=== PATIENT | male | born 1950 | race Caucasian/White ===

== ENCOUNTER 2017-05-23 13:41 | Emergency (ER) | payer OTHER ==
[~2017-05-23] VITALS: Ht 180.3 cm; Wt 129.4 kg
[2017-05-23 13:48] VITALS: Ht 180.3 cm; Wt 129.4 kg
[2017-05-23] MEDS ORDERED: XYLOCAINE 1%/SOD BICARB 20 ML VIAL INFIL STA (14:01)
[2017-05-23] MEDS ORDERED: EZET10TA41 PO (14:13)
[2017-05-23] MEDS ORDERED: ASPI81TA28 PO (14:13)
[2017-05-23] MEDS ORDERED: MULT-220 PO (14:13)
[2017-05-23] MEDS ORDERED: DIPHTHERIA/TETANUS/PERTUSSIS 0.5 ML SYR/VIAL IM. ONE (14:15)
--- NOTE | 2017-05-23 14:33 | EMERGENCY ROOM VISIT NOTE ---
ED Visit Note First contact with patient: 13:52 CHIEF COMPLAINT: Right middle finger laceration HISTORY OF PRESENT ILLNESS: This left-hand dominant 66-year-old male patient presents to the emergency department approximately 1 hour after cutting the right middle finger on a piece of glass. Patient states he was cleaning out garbage which had blown out of the can last night, and states he sliced his right middle finger on a glass container which had broken. The bleeding has not stopped. Denies weakness or numbness of the finger. The patient has full range of motion of the fingers. The patient rates the pain as throbbing and 1/10. The patient denies any other injuries. The patient's tetanus shot is not up to date. The patient denies any foreign body. REVIEW OF SYSTEMS: A 6 system review of systems was completed with positives and pertinent negatives listed in the HPI. ALLERGIES: CT contrast dye MEDICATIONS: Vytorin PMH: Harris's palsy, hyperlipidemia SOCIAL HISTORY: The patient lives locally with family. He recently moved to the area. He denies drug, alcohol, tobacco use. PHYSICAL EXAM: Vital Signs: Reviewed Nurse's notes, vital signs stable. GENERAL : This is a 66-year-old white male, in no acute distress, well developed, well nourished. SKIN: There is a 3 cm long flap type laceration on the dorsal aspect of the right middle finger, overlying the PIP joint. The edges gape apart with traction. There is no foreign material in the wound and it looks clean. There is mild active bleeding. No deep structures such as tendons, bones , or significant blood vessels are seen in the base of the wound. Extension and flexion of the finger is full and strong. Full range of motion of the wrist and other fingers. Capillary refill less than 2 seconds. Normal sensation to light and sharp touch. EMERGENCY DEPARTMENT COURSE: I examined the patient. Verbal consent was obtained to perform the procedure by our PA student under my direct supervision. Using sterile technique the wound was cleansed with Betadine. 4 ml of 1% buffered lidocaine was used to perform a digital block to anesthetize the patient. The area was sterilely draped. Once the patient was anesthetized , the wound was copiously irrigated under pressure with sterile saline. The wound was explored and there were no deep structures injured. The laceration was repaired using 11 total simple interrupted 5-0 nylon sutures. The patient tolerated the procedure well. Hemostasis was achieved. The area was cleaned with sterile saline and dressed with bacitracin ointment and bandage. The patient was given a metal finger splint to help keep the finger in extension to aid with healing due to the location of the wound. The patient was given a tetanus booster. The patient was discharged home in good condition. The patient was seen and evaluated by Dr. Miranda. I attest that I have personally reviewed the patient's current medication list. Patient was found to have normal blood pressure on screening and does not require follow-up. Differential diagnosis includes laceration, contusion, fracture, sprain/strain, tendon or ligament injury, neurovascular compromise, foreign body, assault, and others DIAGNOSIS: Finger laceration The chart was completed utilizing [employer] Speech voice recognition software. Grammatical errors, random word insertions, pronoun errors, and incomplete sentences are an occasional consequence of this system due to software limitations, ambient noise, and hardware issues. Any formal questions or concerns about the content, text, or information contained within the body of this dictation should be directly addressed to the provider for clarification. Current/Historical Medications Scheduled Aspirin (Aspirin Ec), 81 MG PO DAILY Ezetimibe/Simvastatin (Vytorin 10MG/40MG), 1 TAB PO DAILY Multiple Vitamins W/ Minerals (Multi For Him), 1 TAB PO DAILY Vital Signs Date Time Temp Pulse Resp B/P (MAP) Pulse Ox O2 Delivery O2 Flow Rate FiO2 05/23/17 15:16 36.9 63 20 141/77 95 05/23/17 15:16 63 20 141/77 95 Room Air 05/23/17 13:48 36.9 63 20 149/78 95 Room Air Medications Administered Medications (Trade) Dose Ordered Sig/Sonali Route Start Time Stop Time Status Last Admin Dose Admin Diphtheria/ Pertussis/Tetanus Vacc (Adacel Inj) 0.5 ml ONCE ONCE IM. 05/23/17 14:15 05/23/17 14:17 DC 05/23/17 15:09 0.5 ML Departure Information Impression Primary Impression: Laceration of finger Dispostion Home / Self-Care Condition GOOD Referrals No Doctor, Assigned (PCP) Patient Instructions ED Immunization Tetanus and FU, ED Laceration Ext Sutr Stap Tape, StageMark Additional Instructions You have received 11 sutures on your right middle finger. These sutures are NOT dissolvable and WILL need to be removed by a health care provider in 10-14 days. You can return to the Emergency Department or contact your Primary Care Provider to have the sutures removed. Use the metal splint to help prevent flexion of the joint to aid in healing. Proper wound care is essential for adequate wound healing and infection prevention. You can shower and clean the wound with soap and water. Do not scour over the wound, pat dry with a towel. Do not submerse the wound (i.e. bathe or dish wash) until the sutures have been removed. You can use an antibiotic ointment with a dressing over the wound for the next 3-4 days. After this time you may leave the wound dry and open to the air. If crust develops over the wound you can use a Q-tip to apply a 1:1 peroxide:water solution to clean the wound. Look for signs of infection of the wound including: increased pain, swelling, foul discharge, streaking, or increased temperature. If any of these are noticed you should return to the Emergency Department for further assessment and treatment. As with any laceration you may have received nerve damage to the surrounding tissues. This damage may or may not be permanent. You should keep the area covered with sunscreen for the first 6 months to 1 year when at risk for exposure to help minimize scarring. You can also use scar reducing creams or Vitamin E oil to help minimize scarring. For pain control, you can use the following [id number] medicines (if >12 yo): Ibuprofen(Motrin, Advil) may be used for fever or pain. Use 600mg every six hours as needed. Take with food. Avoid using more than 2400mg in a 24 hour period. Do not use 2400mg per day for more than three consecutive days without physician direction. Prolonged inappropriate use can lead to stomach upset or ulcers. (AND/OR) Acetaminophen(Tylenol) may be used for fever or pain. Use 1000mg every six hours as needed. Avoid using more than 3000mg in a 24 hour period. Return to the emergency department if your symptoms worsen despite treatment course outlined above. Problem Qualifiers Primary Impression: Laceration of finger Encounter type: initial encounter Finger: middle finger Damage to nail status: without damage Foreign body presence: without foreign body Laterality: right Qualified Codes: S61.212A - Laceration without foreign body of right middle finger without damage to nail, initial encounter
--- NOTE | 2017-05-23 14:35 | EMERGENCY ROOM VISIT NOTE ---
ED Visit Note First contact with patient: 13:52 This Patient was discussed with the physician legal executive assistant, Montse Dee PA-C. The pertinent historical and physical exam findings were confirmed. I agree with the studies ordered and with the interpretations of these studies. I agree with the disposition and care plan.
[2017-05-23 15:16] VITALS: BP 141/77; PULSE 63; TEMP 36.9; O2SAT 95
== END 2017-05-23 15:18 | disposition home or self-care (01) ==
LOC: C.EDB 13:43 → C.EDD 15:18
DX: S61.212A Laceration without foreign body of right middle finger without damage to nail, initial encounter (principal); W25.XXXA Contact with sharp glass, initial encounter; Y93.89 Activity, other specified; Y99.8 Other external cause status; E78.5 Hyperlipidemia, unspecified; Z23 Encounter for immunization; Z91.041 Radiographic dye allergy status; Z79.82 Long term (current) use of aspirin; Z79.899 Other long term (current) drug therapy